=== PATIENT | female | born 1985 | race Caucasian/White ===

== ENCOUNTER 2018-04-15 14:50 | Emergency (ER) | payer OTHER ==
[~2018-04-15] VITALS: Ht 152.4 cm; Wt 72.6 kg
[~2018-04-15 14:50] MED LIST: CYCLOBENZAPRINE5 MG PO; IBUPROFEN 800800 M1 PO; LEXAPRO 10 MG T10 MG PO; OXCARBAZEPINE300 M1 PO; PRENATAL PO; ROCEPHIN 11 GM/100 M IV; SUMATRIPTAN SU100 MG PO; TRAZODONE HCL50 MG PO; TRILEPTAL 300300 MG PO; ULTRAM 50MG TAB50 MG PO; VICODIN PO; VISTARIL 25 MG25 M1 PO
[2018-04-15 15:57] LABS: HEMATOCRIT 37.9 % (37.0-47.0); HEMOGLOBIN 12.9 gm/dL (12.0-15.0); MCH 31.1 pg (26.0-34.0); MCHC 34.1 g/dL (28.0-37.0); MCV 91.2 fL (80.0-100.0); RBC 4.15 mil/uL (4.20-5.00); WBC 8.9 thou/uL (4.0-11.0)
[2018-04-15 17:00] LABS: ALBUMIN 3.4 g/dL (3.4-5.0); CALCIUM 9.2 mg/dL (8.5-10.1); CREATININE 0.7 mg/dL (0.6-1.0); POTASSIUM 3.1 mmol/L (3.5-5.1); TOTAL BILIRUBIN 0.3 mg/dL (<0.1-1.0); TOTAL PROTEIN 6.6 g/dL (6.4-8.2)
[2018-04-15] MEDS ORDERED: POTASSIUM20 PO (18:08)
[2018-04-15 19:08] VITALS: BP 132/76
== END 2018-04-15 19:09 | disposition home or self-care (01) ==
LOC: ER 14:50
PROVIDERS: Emergency Medicine
DX: F31.9 Bipolar disorder, unspecified (principal); F17.210 Nicotine dependence, cigarettes, uncomplicated; Z88.8 Allergy status to other drugs, medicaments and biological substances; Z90.89 Acquired absence of other organs; Z90.49 Acquired absence of other specified parts of digestive tract